=== PATIENT | female | born 1960 | race Caucasian/White ===

== ENCOUNTER 2019-09-29 09:12 | Outpatient (CLI) | payer OTHER, SELFPAY ==
--- NOTE | 2019-09-29 09:14 | MM_ITS ---
WS: [id number] BILATERAL SCREENING DIGITAL MAMMOGRAM WITH CAD HISTORY: SCREENING COMPARISON: 04/18/2018, 11/06/2016 Bilateral CC and MLO views submitted. Computer aided detection analyzed. Breast composition: There are scattered areas of fibroglandular density. No suspicious masses, microc alcifications or architectural distortion. 6 mm mass in the upper-outer quadrant of the RIGHT breast is stable. MM/[place] [id number] IMPRESSION: BI-RADS: 2-Benign FOLLOW UP: 1 Year Follow-up
== END 2019-09-29 09:13 | disposition home or self-care (01) ==
LOC: RADSHAW 09:12
PROVIDERS: Family Provider Internal Medicine; PCP Family Medicine; Visit Provider Family Medicine
DX: Z12.31 Encounter for screening mammogram for malignant neoplasm of breast (principal)
CPT/HCPCS: 77067

== ENCOUNTER 2021-11-10 06:48 | Outpatient (CLI) | payer OTHER, SELFPAY ==
--- NOTE | 2021-11-10 07:09 | MM_ITS ---
WS: [email or web address] BILATERAL 3D TOMOSYNTHESIS DIGITAL SCREENING MAMMOGRAPHY WITH CAD CLINICAL INFORMATION: SCREENING HISTORY: Screening mammogram. No current complaints. COMPARISON: September 29, 2019, 2017, 2016, 2014, and 2013 TECHNIQUE: Bilateral CC and MLO views. FINDINGS: Scattered fibroglandular densities bilaterally. 4 mm slightly spiculated asymmetric density upper out er LEFT breast posterior depth appears new from previous. This is only well seen on the MLO view. Rec ommend further evaluation with spot compression views and ultrasound. RIGHT breast is unchanged and unremarkable. MM/[place] [id number] IMPRESSION: BI-RADS: 0-Incomplete: Need additional imaging evaluation FOLLOW UP: Need Additional Imaging Recommend LEFT breast diagnostic mammography and ultrasound.
== END 2021-11-10 06:49 | disposition home or self-care (01) ==
LOC: RADSHAW 06:49
PROVIDERS: Family Provider Internal Medicine; PCP Family Medicine; Visit Provider Nurse Practitioner Family
DX: Z12.31 Encounter for screening mammogram for malignant neoplasm of breast (principal)
CPT/HCPCS: 77063; 77067

== ENCOUNTER 2021-12-03 08:50 | Outpatient (CLI) | payer OTHER, SELFPAY ==
--- NOTE | 2021-12-03 09:28 | MM_ITS ---
WS: [email or web address] LEFT 3D TOMOSYNTHESIS DIGITAL MAMMOGRAPHY WITH CAD CLINICAL INFORMATION: ABNORMAL MAMMO COMPARISON: November 10, 2021 TECHNIQUE: 3 views of the left breast were obtained. FINDINGS: Scattered fibroglandular densities left breast. 4 mm asymmetric density outer LEFT breast appears unc hanged. Ultrasound LEFT breast is pending. ULTRASOUND BREAST LEFT TECHNIQUE: Ultrasound left breast focused area of concern. CLINICAL INFORMATION: ABNORMAL MAMMO FINDINGS: Ultrasound LEFT breast at the 12 to 3:00 position and LEFT axilla. Tiny incidental cyst at the 12:00 position measuring 4 x 4 mm. Prominent but Normal-appearing lymph nodes LEFT axilla with normal fatty taran measuring 1.5 x 1.0 x 2.4 cm. No cortical thickening. No suspicious abnormalities. No lesions t o target for biopsy. MM/[place] [id number] IMPRESSION: BI-RADS: 2-Benign FOLLOW UP: 1 Year Follow-up Recommend return to annual screening mammography.
== END 2021-12-03 08:51 | disposition home or self-care (01) ==
LOC: RAD 08:53
PROVIDERS: PCP Family Medicine; Visit Provider Nurse Practitioner Family
DX: R92.8 Other abnormal and inconclusive findings on diagnostic imaging of breast (principal)
CPT/HCPCS: 76642; 77061

== ENCOUNTER → 2023-03-02 10:02 | Outpatient (BNVA) | payer OTHER, SELFPAY | PROVIDERS: PCP Family Medicine; Visit Provider Family Medicine | DX: I10 Essential (primary) hypertension (principal); Z13.6 Encounter for screening for cardiovascular disorders; E03.9 Hypothyroidism, unspecified | CPT/HCPCS: 80053; 80061; 84443; 85025 ==

== ENCOUNTER 2023-03-18 07:34 | Outpatient (CLI) | payer OTHER, SELFPAY ==
--- NOTE | 2023-03-18 08:00 | US_ITS ---
WS: [email or web address] ULTRASOUND ABDOMEN LIMITED CLINICAL INFORMATION: elevated transaminases COMPARISON: None. FINDINGS: Liver Size: Enlarged craniocaudal length: 18.6 cm. Echogenicity: Coarse surface nodularity: None. Mass (size and location): None. Bile ducts Intrahepatic ducts: Normal. Common bile duct diameter: 0.3 cm. Gallbladder Removed Pancreas Normal as visualized. Right kidney: Normal. Hydronephrosis: None. Size: 11.4 cm x 4.6 cm x 5.8 cm. Abdominal aorta and IVC Visualized portions are normal. Ascites: None. IMPRESSION: 1. Hepatomegaly with diffuse fatty infiltration of the liver. 2. Cholecystectomy. 3. No hydronephrosis in the right kidney.
== END 2023-03-18 07:35 | disposition home or self-care (01) ==
PROVIDERS: PCP Family Medicine; Visit Provider Family Medicine
DX: R74.01 Elevation of levels of liver transaminase levels (principal); K76.0 Fatty (change of) liver, not elsewhere classified; R16.0 Hepatomegaly, not elsewhere classified
CPT/HCPCS: 76705

== ENCOUNTER → 2023-03-25 10:31 | Outpatient (BNVA) | payer OTHER, SELFPAY | PROVIDERS: PCP Family Medicine; Visit Provider Family Medicine | DX: R74.01 Elevation of levels of liver transaminase levels (principal); K76.0 Fatty (change of) liver, not elsewhere classified; I10 Essential (primary) hypertension | CPT/HCPCS: 86705; 86706; 86709; 86803; 87340 ==

== ENCOUNTER 2023-06-11 08:28 | Outpatient (CLI) | payer OTHER, SELFPAY ==
--- NOTE | 2023-06-11 08:45 | MM_ITS ---
WS: [id number] BILATERAL SCREENING DIGITAL TOMOSYNTHESIS MAMMOGRAM WITH CAD HISTORY: SCREENING COMPARISON: 12/03/2021, 11/10/2021, 04/18/2018 and 09/29/2019 Bilateral CC and MLO views with tomosynthesis and synthetic mammography submitted. Computer aided det ection analyzed. Breast composition: There are scattered areas of fibroglandular density. No suspicious masses, microc alcifications or architectural distortion. There are a few asymmetries which are stable within each b reast. IMPRESSION: MM/[place] [id number] BI-RADS: 2-Benign FOLLOW UP: 1 Year Follow-up
== END 2023-06-11 08:29 | disposition home or self-care (01) ==
LOC: MOBLMAM 08:34
PROVIDERS: PCP Family Medicine; Visit Provider Family Medicine
DX: Z12.31 Encounter for screening mammogram for malignant neoplasm of breast (principal)
CPT/HCPCS: 77063; 77067

== ENCOUNTER → 2023-12-06 09:15 | Outpatient (BNVA) | payer OTHER, SELFPAY | PROVIDERS: PCP Family Medicine; Visit Provider Nurse Practitioner Family | DX: R30.0 Dysuria (principal) | CPT/HCPCS: 81000 ==

== ENCOUNTER → 2024-02-16 16:15 | Outpatient (BNVA) | payer OTHER, SELFPAY | PROVIDERS: PCP Family Medicine; Visit Provider Nurse Practitioner Family | DX: R05.9 Cough, unspecified (principal) | CPT/HCPCS: 87426 ==

== ENCOUNTER → 2024-06-13 08:26 | Outpatient (BNVA) | payer OTHER, SELFPAY | PROVIDERS: PCP Family Medicine; Visit Provider Family Medicine | DX: K76.0 Fatty (change of) liver, not elsewhere classified (principal); R74.01 Elevation of levels of liver transaminase levels; I10 Essential (primary) hypertension; E66.9 Obesity, unspecified | CPT/HCPCS: 80053; 80061; 83036 ==

== ENCOUNTER 2024-07-10 07:36 | Outpatient (CLI) | payer OTHER, SELFPAY ==
[2024-07-10] MEDS: iohexol 350 mg/mL 500 mL Btl (per mL) PO (08:16)
--- NOTE | 2024-07-10 08:30 | CT_ITS ---
WS: [email or web address] CT ABDOMEN PELVIS TECHNIQUE: Contrast-enhanced CT of the abdomen and pelvis with coronal and sagittal reformatted image s. CLINICAL INFORMATION: K57.92 - Diverticulitis of intestine, part unspecified, w... COMPARISON: None. DLP: 565.[address] scans at [facility] use at least one of these dose optimization techniques: automated e xposure control; mA and/or kV adjustment per patient size (includes targeted exams where dose is matc hed to clinical indication); or iterative reconstruction. FINDINGS: Cholecystectomy. Prior hysterectomy. Diffuse fatty filtration of the liver. Normal portal vein and sp lenic vein. Normal spleen. Small esophageal hernia. LEFT lower lobe lentiform pleural-based nodule wi th smooth margins measuring 3.5 x 1.3 cm. Recommend further evaluation with PET/CT to assess activity . Normal pancreatic parenchymal enhancement. Adrenal glands are normal. No hydronephrosis in either kid suzanne. Normal caliber abdominal aorta. Celiac and SMA are patent. Small fat-containing umbilical hernia. Normal sigmoid colon. Disc space narrowing worse at L4-5. CT/CT abdomen pelvis w con* [id number] IMPRESSION: 1. Lentiform pleural-based nodule LEFT lower lobe measuring 3.5 x 1.3 cm with smooth margins. This is nonspecific but neoplasm not excluded. Recommend furthe r evaluation with PET/CT to assess activity. 2. Diffuse infiltration of the liver. 3. Small esophageal hernia. 4. No evidence of acute diverticulitis. Few sigmoid diverticuli. 5. No other acute findings.
[2024-07-10] MEDS: iohexol 350 mg/mL 500 mL Btl (per mL) IV (09:23)
== END 2024-07-10 07:37 | disposition home or self-care (01) ==
LOC: RAD 07:37
PROVIDERS: PCP Family Medicine; Visit Provider Family Medicine
DX: K57.92 Diverticulitis of intestine, part unspecified, without perforation or abscess without bleeding (principal); K76.0 Fatty (change of) liver, not elsewhere classified; Z90.49 Acquired absence of other specified parts of digestive tract; Z90.710 Acquired absence of both cervix and uterus; R91.1 Solitary pulmonary nodule
CPT/HCPCS: 74177

== ENCOUNTER 2024-07-18 08:59 | Outpatient (CLI) | payer OTHER, SELFPAY ==
--- NOTE | 2024-07-18 09:00 | MM_ITS ---
WS: [email or web address] VIEWS: MLO and CC views both breasts. 3D digital tomosynthesis is also included in this exam. Comparison made with prior exam of 11/06/2016, 09/17/2010, 07/21/2012. 12/05/2013, 04/18/2018, 09/29/2019, 11/10/2021, 06/11/2023... Findings: There are scattered areas of fibroglandular density. Stable appearing nodular densities in both breasts. No new suspicious finding in either breast. MM/MM scr BI tomosynthesis [id number] Impression: BI-RADS: 2 - Benign FOLLOW-UP: 1 Year Follow-up This mammogram was also analyzed by the Computer Aided Detection System R2 Imag e [employer].
== END 2024-07-18 09:00 | disposition home or self-care (01) ==
LOC: MOBLMAM 09:00
PROVIDERS: PCP Family Medicine; Visit Provider Family Medicine
DX: Z12.31 Encounter for screening mammogram for malignant neoplasm of breast (principal); R92.323 Mammographic fibroglandular density, bilateral breasts
CPT/HCPCS: 77063; 77067

== ENCOUNTER → 2024-11-23 08:28 | Outpatient (BNVA) | payer OTHER, SELFPAY | PROVIDERS: PCP Family Medicine; Visit Provider Family Medicine | DX: Z00.00 Encounter for general adult medical examination without abnormal findings (principal); I10 Essential (primary) hypertension; K76.0 Fatty (change of) liver, not elsewhere classified; R74.01 Elevation of levels of liver transaminase levels; E03.9 Hypothyroidism, unspecified | CPT/HCPCS: 80053; 80061; 82306; 82607; 83036; 84443 ==

== ENCOUNTER 2025-02-07 11:49 | Outpatient (CLI) | payer SELFPAY ==
--- NOTE | 2025-02-07 13:15 | CT_ITS ---
WS: [email or web address] CT abdomen pelvis w con* [id number] REASON FOR EXAM: K57.92 - Diverticulitis of intestine, part unspecified, w... IV CONTRAST ADMINISTERED: 100 mL of Omnipaque 350. TOTAL EXAM DLP: 386.[address] scans at [facility] use at least one of these dose optimization techniques: automated exposure control; mA and/or kV adjustment per patient size (includes targeted exams where dose is matched to clinical indication); or iterative reconstruction. TECHNIQUE: Following intravenous and oral administration of contrast multiple axial images were obtained through the abdomen and pelvis with sagittal and coronal reconstructions. COMPARISON EXAMINATION: 07/10/2024 FINDINGS: Compared to the previous examination, a long segment of sigmoid in the dependent portion of the pelvis demonstrates mural thickening with multiple diverticuli. There is hazy density and stranding within the fat. There is no focal fluid collection or extraluminal gas. The remainder of the examination of the abdomen and pelvis is unchanged compared to the previous study. The liver, spleen, pancreas, and gallbladder are unremarkable. Normal adrenals. Kidneys demonstrate mild UPJ stenosis with mildly dilated extrarenal pelves. No mass, free fluid, or focal fluid collection. CT/CT abdomen pelvis w con* [id number] IMPRESSION: Findings indicative of relatively mild sigmoid diverticulitis. There is no evid ence of perforation or abscess formation. The remainder of the examination is unchanged compared to 07/10/2024.
[2025-02-07] MEDS: iohexol 350 mg/mL 500 mL Btl (per mL) PO (13:23)
[2025-02-07] MEDS: iohexol 350 mg/mL 500 mL Btl (per mL) IV (13:23)
== END 2025-02-07 11:50 | disposition home or self-care (01) ==
LOC: RAD 11:55
PROVIDERS: PCP Family Medicine; Visit Provider Family Medicine
DX: K57.32 Diverticulitis of large intestine without perforation or abscess without bleeding (principal)
CPT/HCPCS: 74177